=== PATIENT | female | born 2000 | race Caucasian/White ===

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

== ENCOUNTER 2020-02-06 14:38 | Emergency (ER) | payer OTHER ==
[2020-02-06 14:48] VITALS: BP 111/63; PULSE 82; TEMP 98.8; BMI 23.7
[2020-02-06] MEDS ORDERED: ACETAMINOPHEN 500 MG TABLET (FP) PO ONE (15:28)
--- NOTE | 2020-02-06 15:36 | PDOC ---
History of Present Illness - General Chief Complaint: Pain Stated Complaint: 12 WEEKS W[place]/ABD PAIN Time Seen by Provider: 02/06/20 15:02 History Source: Patient Exam Limitations: No Limitations - History of Present Illness Travel History: No Initial Comments: 02/06/20 15:32 HISTORY OF PRESENT ILLNESS: 19-year-old G2, P1 with last menstrual period 11/12 p resents emergency department for evaluation of lower abdominal pain. Patient reports last night she felt a sharp sensation in her lower abdomen which she states worsens when she tries to stand. She reports when she stands there is an increase in intensity which lasts for a few minutes. Patient is unable to move or sleep when the pain is happening. Patient denies any nausea, vomiting, constipation, diarrhea, rectal bleeding, vaginal bleeding, vaginal discharge, dysuria, hematuria or urinary frequency. No recent travel or sick contacts. PAST MEDICAL HISTORY: Denies past medical history SURGICAL HISTORY: Denies ALLERGIES: No known drug allergies REVIEW OF SYSTEMS General/Constitutional: Denies fever or chills. Denies weakness, weight change. HEENT: Denies change in vision. Denies ear pain or discharge. Denies sore throat. Cardiovascular: Denies chest pain or shortness of breath. Respiratory: Denies cough, wheezing, or hemoptysis. Gastrointestinal: See HPI Genitourinary: Denies dysuria, frequency, or change in urination. Musculoskeletal: Denies joint or muscle swelling or pain. Denies neck or back pain. Skin and breasts: Denies rash or easy bruising. Neurologic: Denies headache, vertigo, loss of consciousness, or loss of sensation. Psychiatric: Denies depression or anxiety. Endocrine: Denies increased thirst. Denies abnormal weight change. Hematologic/Lymphatic: Denies anemia, easy bleeding, or history of blood clots. Allergic/Immunologic: Denies hives or skin allergy. Denies latex allergy. PHYSICAL EXAM General Appearance: Well-appearing, appropriately dressed. No apparent distress, no intoxication. Gastrointestinal/Abdominal: Normal bowel sounds. Gravid abdomen soft. No tenderness or rebound tenderness. No organomegaly, pulsatile mass, guarding, hernia, hepatomegaly, splenomegaly. Musculoskeletal/Extremities: Normal inspection. FROM of all extremities, normal capillary refill. Pelvis Stable. No CVA tenderness. No tenderness to extremities, pedal edema, swelling, erythema or deformity. Past History - Medical History Allergies/Adverse Reactions: Allergies Allergy/AdvReac Type Severity Reaction Status Date / Time No Known Allergies Allergy Verified 02/06/20 14:47 Home Medications: Ambulatory Orders Queftycw26/Iron/Folic Acid/Dha [Prena1 Samanta Softgel] 1 each PO DAILY 02/01/20 Doxylamine Succinate/Vit B6 [Wandy Lainez 10-10 mg Tablet] 1 each PO BID #14 tablet. 02/06/20 Ondansetron [Zofran *Odt*] 4 mg SL BID PRN 02/06/20 COPD: No - Reproductive History Is Patient Now?: Yes (#): 2 Para: 0 Therapeutic (s) & number: No - Immunization History Immunization Up to Date: Yes - Psycho-Social/Smoking History Smoking History: Never smoked *Physical Exam - Vital Signs Last Vital Signs Temp Pulse Resp BP Pulse Ox 98.8 F 82 18 111/63 98 02/06/20 14:41 02/06/20 14:41 02/06/20 14:41 02/06/20 14:41 02/06/20 14:41 ED Treatment Course - LABORATORY CBC & Chemistry Diagram: 02/06/20 16:00 02/06/20 16:00 - RADIOLOGY Radiology Studies Ordered: Category Date Time Status <14WKS US [US] Stat Ultrasound 02/06/20 15:28 Ordered Medical Decision Making - Medical Decision Making 02/06/20 15:34 A/P: 19-year-old girl with suprapubic sharpness for 1 day Physical exam is unremarkable As patient is currently we will get an ultrasound to evaluate development. CBC, BMP, urinalysis, urine culture Tylenol 975 mg orally now Reassess 02/06/20 18:04 Laboratory Tests 02/06/20 02/06/20 02/06/20 16:00 16:00 16:00 WBC 8.8 RBC 4.32 Hgb 13.6 Hct 40.4 MCV 93.5 MCH 31.5 MCHC 33.6 RDW 13.0 Plt Count 213 MPV 9.1 Absolute Neuts (auto) 6.1 Neutrophils % 69.5 Lymphocytes % 24.3 Monocytes % 5.6 Eosinophils % 0.4 Basophils % 0.2 Nucleated RBC % 0 Sodium 151 H Potassium 4.5 Chloride 115 H Carbon Dioxide 24 Anion Gap 11 BUN 7.6 Creatinine 0.6 Est GFR (CKD-EPI)AfAm 153.15 Est GFR (CKD-EPI)NonAf 132.14 Random Glucose 60 L Calcium 9.0 Urine Color Yellow Urine Appearance Turbid Urine pH 7.0 Ur Specific [place] 1.023 Urine Protein Negative Urine Glucose (UA) Negative Urine Ketones Trace H Urine Blood Negative Urine Nitrite Negative Urine Bilirubin Negative Urine Urobilinogen 0.2 Ur Leukocyte Esterase Negative Ultrasound is read by Dr. Watson: Single live intrauterine with estimated sonographic gestational age of 12 weeks. heart rate is 144 bpm. Patient reports her pain is slightly improved after receiving Tylenol. Will discharge the patient home to follow-up with her STRUCTURAL STEEL IRONWORKER for continued evaluation. I discussed the physical exam findings, ancillary test results and final diagnoses with the patient. I answered all of the patient's questions. The patient was satisfied with the care received and felt comfortable with the discharge plan and treatment plan. The patient will call their primary care physician within 24 hours to arrange follow-up and will return to the Emergency Department with any new, persistent or worsening symptoms. Portions of this note have been documented using voice recognition software. As a result, errors may occur in the mail processor process. Effort has been made to correct all grammatical and mail processor error, but some may have been missed which may produce sporadic inaccurate mail processor or nonsensical phrases. Discharge - Discharge Information Problems reviewed: Yes Clinical Impression/Diagnosis: Abdominal pain during Qualifiers: Trimester: first trimester Qualified Code(s): O26.891 - Other specified related conditions, first trimester; R10.9 - Unspecified abdominal pain Condition: Fair Disposition: HOME - Additional Discharge Information Prescriptions: Doxylamine Succinate/Vit B6 [Diclegis Dr 10-10 mg Tablet] 1 each PO BID #14 tablet.dr - Follow up/Referral - Patient Discharge Instructions Additional Instructions: Take Tylenol as needed for pain. Take diclegis as needed for nausea and/or vomiting. It is important to follow-up with your STRUCTURAL STEEL IRONWORKER for continued evaluation of your pain. Return to the emergency department for any new or worsening symptoms. Thank you very much for choosing us to provide your emergent healthcare needs. - Post Discharge Activity
[2020-02-06] MEDS ORDERED: ACETAMINOPHEN 325 MG TABLET (FP) ONE (16:07)
[2020-02-06 16:19] LABS: BASO % 0.2 % (0-2.0); EOS % 0.4 % (0-4.5); HEMATOCRIT 40.4 % (32.4-45.2); HEMOGLOBIN 13.6 GM/dL (10.7-15.3); LYMPH % 24.3 % (8-40); MCH 31.5 pg (25.7-33.7); MCHC 33.6 g/dl (32.0-36.0); MEAN CELL VOLUME 93.5 fl (80-96); MEAN PLT VOLUME 9.1 fl (7.5-11.1); MONO % 5.6 % (3.8-10.2); NEUT % 69.5 % (42.8-82.8); PLATELET COUNT 213 K/MM3 (134-434); RBC 4.32 M/mm3 (3.60-5.2); WHITE BLOOD COUNT 8.8 K/mm3 (4.0-10.0)
[2020-02-06 16:25] LABS: URINE APPEARANCE TURBID; URINE BILIRUBIN NEGATIVE (NEGATIVE); URINE COLOR YELLOW; URINE GLUCOSE (UA) NEGATIVE (NEGATIVE); URINE KETONE TRACE (NEGATIVE); URINE LEUK ESTERASE NEGATIVE (NEGATIVE); URINE NITRITE NEGATIVE (NEGATIVE); URINE PROTEIN NEGATIVE (NEGATIVE); URINE UROBILINOGEN 0.2 mg/dL (0.2-1.0)
[2020-02-06 17:00] LABS: BLOOD UREA NITROGEN 7.6 mg/dL (7-18); CREATININE 0.6 mg/dL (0.55-1.3); POTASSIUM 4.5 mmol/L (3.5-5.1)
== END 2020-02-06 19:16 | disposition home or self-care (01) ==
LOC: JER 14:38
DX: O26.891 Other specified pregnancy related conditions, first trimester (principal); Z3A.12 12 weeks gestation of pregnancy
CPT/HCPCS: 36415; 76801-TC; 80048; 81003; 85025; 87077; 87086; 99284-25

== ENCOUNTER 2020-03-07 19:20 | Emergency (ER) | payer OTHER ==
[2020-03-07 19:29] VITALS: BP 113/65; PULSE 78; TEMP 98.1; BMI 24.0
--- NOTE | 2020-03-07 20:38 | PDOC ---
History of Present Illness - General Chief Complaint: Pain, Acute Stated Complaint: 16 WKS PREG W/ CLEAR DISCHARGE Time Seen by Provider: 03/07/20 20:02 History Source: Patient Exam Limitations: No Limitations - History of Present Illness Initial Comments: 19-year-old female currently 16 weeks presenting to the ED complaining of abdominal cramping and watery vaginal discharge since today. Patient's ORE DRESSING ENGINEER is Dr. Nichols. Patient denies any vaginal bleeding. Pt otherwise denies: fevers, chills, syncope, lightheadedness, dizziness, headaches, neck pain, chest pain, shortness of breath, palpitations, back pain, nausea, vomiting, diarrhea, constipation. Past History - Medical History Allergies/Adverse Reactions: Allergies Allergy/AdvReac Type Severity Reaction Status Date / Time No Known Allergies Allergy Verified 02/06/20 14:47 Home Medications: Ambulatory Orders Iueortaz25/Iron/Folic Acid/Dha [Prena1 Samanta Softgel] 1 each PO DAILY 02/01/20 Doxylamine Succinate/Vit B6 [Wandy Lainez 10-10 mg Tablet] 1 each PO BID #14 tablet. 02/06/20 Ondansetron [Zofran *Odt*] 4 mg SL BID PRN 02/06/20 Cephalexin Monohydrate [Keflex -] 500 mg PO BID #20 capsule 02/09/20 Cephalexin [Keflex] 500 mg PO BID #10 capsule 03/07/20 COPD: No - Reproductive History Is Patient Now?: Yes (#): 2 Para: 0 Therapeutic (s) & number: No Spontaneous : 0 - Immunization History Immunization Up to Date: Yes - Psycho-Social/Smoking History Smoking History: Never smoked - Substance Abuse Hx (Audit-C & DAST Scrn) How often the patient has a drink containing alcohol: Never Score: In Men: 4 or > Positive; In Women: 3 or > Positive: 0 Screen Result (Pos requires Nsg. Audit-10AR): Negative In the last yr the pt used illegal drug/Rx for NonMed reason: No Score: Yes response is considered Positive: 0 Screen Result (Positive result requires Nsg. DAST-10): Negative *Physical Exam - Vital Signs Last Vital Signs Temp Pulse Resp BP Pulse Ox 98.1 F 78 19 113/65 100 03/07/20 19:27 03/07/20 19:27 03/07/20 19:27 03/07/20 19:27 03/07/20 19:27 - Physical Exam 03/07/20 20:38 Gen: AAOx 3, no acute distress, comfortable, no signs of respiratory distress HENT: atraumatic, normocephalic with no laceration or contusion. Nasal mucosa without erythema. Oropharynx without erythema or exudates. Mucous membranes moist. EYES: PERRL, EOM intact, conjunctiva pink NECK: supple; trachea midline; no JVD, no lymphadenopathy, or thyromegaly CV: RRR no murmurs, gallops, or rubs. CHEST: CTA b/l no wheezing, rales or rhonchi ABD: +BS/ND. no TTP; soft, no rebound, no guarding PELVIC: No external lesions, vaginal vault: + white discharge, no blood, - midline tenderness elicited with manual exam, no CMT or adnexal tenderness; os closed EXTREMITY: no cyanosis or erythema. 2+ dorsalis pedis, posterior tibial, and radial pulse. No pedal edema; no calf swelling or tenderness SKIN: no rash, warm and dry, no diaphoresis HEME: no purpura or ecchymosis NEURO: normal speech, CN II-XII intact, sensation intact, normal gait, no cerebellar deficits MS: 5/5 strength in all extremities, FROM intact in all extremities. ED Treatment Course - LABORATORY CBC & Chemistry Diagram: 03/07/20 20:15 03/07/20 20:00 - RADIOLOGY Radiology Studies Ordered: Category Date Time Status US(SINGLE) [US] Stat Ultrasound 03/07/20 20:07 Ordered Medical Decision Making - Medical Decision Making 03/07/20 20:38 19-year-old female with lower abdominal cramping and discharge Vital signs stable Will obtain labs UA UC GC and transvaginal ultrasound Will reassess based on results White blood cell count 8.8 H&H stable at 13.1/30.8 Chemistry within normal limits Beta 32,477 Rh+ Urine significant for UTI Will discharge on Keflex twice daily for 5 days TVUS shows live intrauterine 16 weeks 5 days with a heart rate of 148 rest of exam within normal limits Will treat for gonorrhea chlamydia prophylactically as there was vaginal discharge and the risks outweigh the benefits of waiting for results. Patient counseled and understands this and knows that she will receive a call if the results are positive. Patient to follow-up with BATTERY INSTALLER without fail Pt appears well and is safe and stable for discharge with strict return precautions including signs and symptoms requring immediate return to the ED Supportive care instructions explained and given to pt. Reasons to return emergently to ER explained and given. Importance of follow up with PMD and other specialists as indicated stressed to pt. Pt verbalized understanding of instructions. Pt to follow up with PMD in 2 days. Discharge - Discharge Information Problems reviewed: Yes Clinical Impression/Diagnosis: UTI (urinary tract infection) Qualifiers: Urinary tract infection type: acute cystitis Hematuria presence: without hematuria Qualified Code(s): N30.00 - Acute cystitis without hematuria Condition: Stable Disposition: HOME - Additional Discharge Information Prescriptions: Cephalexin [Keflex] 500 mg PO BID #10 capsule - Follow up/Referral - Patient Discharge Instructions Patient Printed Discharge Instructions: DI for Urinary Tract Infection (UTI) Additional Instructions: PLEASE FOLLOW UP WITH YOUR BATTERY INSTALLER - Post Discharge Activity
[2020-03-07 21:33] LABS: BASO % 0.5 % (0-2.0); EOS % 0.6 % (0-4.5); HEMATOCRIT 38.8 % (32.4-45.2); HEMOGLOBIN 13.1 GM/dL (10.7-15.3); LYMPH % 28.9 % (8-40); MCHC 33.7 g/dl (32.0-36.0); MEAN PLT VOLUME 9.2 fl (7.5-11.1); MONO % 6.5 % (3.8-10.2); NEUT % 63.5 % (42.8-82.8); PLATELET COUNT 232 K/MM3 (134-434); RBC 4.21 M/mm3 (3.60-5.2); RDW 12.6 % (11.6-15.6); WHITE BLOOD COUNT 8.8 K/mm3 (4.0-10.0)
[2020-03-07 21:35] LABS: INR 0.92 (0.83-1.09)
[2020-03-07 21:44] LABS: EPI CELLS >36 /uL (0-25.1); HYALINE CASTS 2 /uL (0-3.1); URINE APPEARANCE CLEAR; URINE BACTERIA 245 /uL (0-1359); URINE BILIRUBIN NEGATIVE (NEGATIVE); URINE COLOR YELLOW; URINE GLUCOSE (UA) NEGATIVE (NEGATIVE); URINE KETONE NEGATIVE (NEGATIVE); URINE LEUK ESTERASE TRACE (NEGATIVE); URINE NITRITE NEGATIVE (NEGATIVE); URINE PROTEIN NEGATIVE (NEGATIVE); URINE RBC 3 /uL (0-23.9); URINE UROBILINOGEN 0.2 mg/dL (0.2-1.0); URINE WBC 9 /uL (0-25.8)
[2020-03-07 22:09] LABS: ALBUMIN 3.4 g/dl (3.4-5.0); BILIRUBIN,TOTAL 0.9 mg/dL (0.2-1); CALCIUM 8.9 mg/dL (8.5-10.1); CREATININE 0.5 mg/dL (0.55-1.3); POTASSIUM 4.1 mmol/L (3.5-5.1); TOT PROT 6.8 g/dl (6.4-8.2)
[2020-03-07 22:21] LABS: PROTHROMBIN TIME (PATIENT) 10.8 SEC (9.7-13.0)
[2020-03-07 22:24] LABS: ACTIVATED PTT 27.7 SECONDS (25.2-36.5)
[2020-03-07] MEDS ORDERED: AZITHROMYCIN 500 MG TABLET PO ONE (22:48)
[2020-03-07] MEDS ORDERED: AZITHROMYCIN 250 MG TABLET ONE (22:56)
[2020-03-07] MEDS ORDERED: CEFTRIAXONE 1 GM/50 ML BAG ONE (22:57)
== END 2020-03-07 23:25 | disposition home or self-care (01) ==
LOC: JER 19:20
DX: N30.00 Acute cystitis without hematuria (principal)
CPT/HCPCS: 36415; 76801-TC; 80053; 81003; 84702; 85025; 85610; 85730; 86850; 86900; 86901; 87086; 87491; 87591; 99285-25

== ENCOUNTER 2020-03-09 19:16 | Emergency (ER) | payer OTHER ==
[2020-03-09 19:29] VITALS: BP 104/59; PULSE 75; TEMP 98.6; BMI 24.0
[2020-03-09] MEDS ORDERED: FAMOTIDINE 20 MG/50 ML IVPB 20 MG/50 ML MG IVPB ONE ×2 (20:02→20:32)
[2020-03-09] MEDS ORDERED: ONDANSETRON 4 MG/2 ML VIAL IVPUSH ONE (20:02)
--- NOTE | 2020-03-09 20:08 | PDOC ---
History of Present Illness - General Chief Complaint: Vomiting/Diarrhea Stated Complaint: 16 WKS/VOMITING/DIARRHEA Time Seen by Provider: 03/09/20 19:51 History Source: Patient Exam Limitations: No Limitations - History of Present Illness Initial Comments: 03/09/20 20:03 19-year-old female currently 16 weeks presenting to the ED complaining of nausea vomiting and diarrhea. pt states her symptoms began yesterday afternoon and she has not been able to tolerate PO since. Pt was here 2 days ago seen and examined by myself with negative workup aside from UTI and started on keflex. Pt has been compliant with meds. Pt states last meal was 5pm followed by olivia GUERRERO. Pt otherwise denies: fevers, chills, syncope, lightheadedness, dizziness, headaches, neck pain, chest pain, shortness of breath, palpitations, back pain, constipation. Past History - Medical History Allergies/Adverse Reactions: Allergies Allergy/AdvReac Type Severity Reaction Status Date / Time No Known Allergies Allergy Verified 03/09/20 19:29 Home Medications: Ambulatory Orders Qtwzohag53/Iron/Folic Acid/Dha [Prena1 Samanta Softgel] 1 each PO DAILY 02/01/20 Doxylamine Succinate/Vit B6 [Wandy Lainez 10-10 mg Tablet] 1 each PO BID #14 tablet. 02/06/20 Ondansetron [Zofran *Odt*] 4 mg SL BID PRN 02/06/20 Cephalexin Monohydrate [Keflex -] 500 mg PO BID #20 capsule 02/09/20 Cephalexin [Keflex] 500 mg PO BID #10 capsule 03/07/20 Doxylamine Succinate/Vit B6 [Wandy Lainez 10-10 mg Tablet] 2 each PO HS 7 Days #14 tablet. 03/09/20 Famotidine [Pepcid] 40 mg PO DAILY #14 tablet 03/09/20 COPD: No - Reproductive History Is Patient Now?: Yes (#): 2 Para: 0 Cervical CA: No Dysfunctional Uterine Bleeding: No Ectopic : No Endometrial CA: No Polycystic Ovaries: No Therapeutic (s) & number: No Tubal Ligation: No Spontaneous : 0 - Immunization History Immunization Up to Date: Yes - Psycho-Social/Smoking History Smoking History: Never smoked - Substance Abuse Hx (Audit-C & DAST Scrn) How often the patient has a drink containing alcohol: Never Score: In Men: 4 or > Positive; In Women: 3 or > Positive: 0 Screen Result (Pos requires Nsg. Audit-10AR): Negative *Physical Exam - Vital Signs Last Vital Signs Temp Pulse Resp BP Pulse Ox 98.6 F 75 18 104/59 L 99 03/09/20 19:26 03/09/20 19:26 03/09/20 19:26 03/09/20 19:26 03/09/20 19:26 - Physical Exam 03/09/20 20:06 Gen: AAOx 3, no acute distress, comfortable, no signs of respiratory distress HENT: atraumatic, normocephalic with no laceration or contusion. Nasal mucosa without erythema. Oropharynx without erythema or exudates. Mucous membranes moist. EYES: PERRL, EOM intact, conjunctiva pink NECK: supple; trachea midline; no JVD, no lymphadenopathy, or thyromegaly CV: RRR no murmurs, gallops, or rubs. CHEST: CTA b/l no wheezing, rales or rhonchi ABD: +BS/ND. no TTP; soft, no rebound, no guarding fundus slightly below umbillicus EXTREMITY: no cyanosis or erythema. 2+ dorsalis pedis, posterior tibial, and radial pulse. No pedal edema; no calf swelling or tenderness SKIN: no rash, warm and dry, no diaphoresis HEME: no purpura or ecchymosis NEURO: normal speech, CN II-XII intact, sensation intact, normal gait, no cerebellar deficits MS: 5/5 strength in all extremities, FROM intact in all extremities. ED Treatment Course - LABORATORY CBC & Chemistry Diagram: 03/09/20 20:30 03/09/20 20:30 Medical Decision Making - Medical Decision Making 03/09/20 20:06 19-year-old female 16 weeks gestation with nausea vomiting diarrhea Vital signs stable Obtain labs administer normal saline Zofran and Pepcid Will reassess based on results Labs show a white blood cell count of 10.1 (most likely reactive) Chemistry within normal limits Lipase within normal limits UA: shows no UTI culture from 2 days ago pending since pt had UTI on previous UA 2 days ago will have pt complete 4 more days of Keflex rather than the full course of 10 days prescribed. Patient is currently tolerating p.o. food and fluids in the ED after Zofran and Pepcid patient received 1 L normal saline and states she feels much better Will discharge home with Aminta Patient to follow-up with PCP and [facility] Pt appears well and is safe and stable for discharge with strict return precautions including signs and symptoms requring immediate return to the ED Supportive care instructions explained and given to pt. Reasons to return emergently to ER explained and given. Importance of follow up with PMD and other specialists as indicated stressed to pt. Pt verbalized understanding of instructions. Pt to follow up with PMD in 2 days. Discharge - Discharge Information Problems reviewed: Yes Clinical Impression/Diagnosis: Acute vomiting UTI (urinary tract infection) Qualifiers: Urinary tract infection type: acute cystitis Hematuria presence: without hematuria Qualified Code(s): N30.00 - Acute cystitis without hematuria Condition: Stable Disposition: HOME - Additional Discharge Information Prescriptions: Doxylamine Succinate/Vit B6 [Wandy Lainez 10-10 mg Tablet] 2 each PO HS 7 Days #14 tablet. Famotidine [Pepcid] 40 mg PO DAILY #14 tablet - Follow up/Referral - Patient Discharge Instructions Patient Printed Discharge Instructions: DI for Hyperemesis Gravidarum, DI for Vomiting -- Adult Additional Instructions: PLEASE FOLLOW UP WITH [facility] - Post Discharge Activity
[2020-03-09] MEDS ORDERED: ONDANSETRON 4 MG/2 ML VIAL ONE (20:39)
[2020-03-09 20:59] LABS: BASO % 0.2 % (0-2.0); EOS % 0.1 % (0-4.5); HEMATOCRIT 37.2 % (32.4-45.2); HEMOGLOBIN 12.8 GM/dL (10.7-15.3); MCH 31.6 pg (25.7-33.7); MCHC 34.4 g/dl (32.0-36.0); MEAN CELL VOLUME 91.8 fl (80-96); MEAN PLT VOLUME 9.2 fl (7.5-11.1); MONO % 3.4 % (3.8-10.2); NEUT % 80.3 % (42.8-82.8); PLATELET COUNT 210 K/MM3 (134-434); RBC 4.05 M/mm3 (3.60-5.2); RDW 12.8 % (11.6-15.6); WHITE BLOOD COUNT 10.1 K/mm3 (4.0-10.0)
[2020-03-09 21:33] LABS: ALBUMIN 3.3 g/dl (3.4-5.0); BILIRUBIN,TOTAL 0.9 mg/dL (0.2-1); BLOOD UREA NITROGEN 6.4 mg/dL (7-18); CALCIUM 8.8 mg/dL (8.5-10.1); CREATININE 0.5 mg/dL (0.55-1.3); POTASSIUM 4.4 mmol/L (3.5-5.1); TOT PROT 6.6 g/dl (6.4-8.2)
[2020-03-09 22:56] LABS: URINE APPEARANCE CLEAR; URINE BILIRUBIN NEGATIVE (NEGATIVE); URINE COLOR YELLOW; URINE GLUCOSE (UA) NEGATIVE (NEGATIVE); URINE KETONE 4+ (NEGATIVE); URINE LEUK ESTERASE NEGATIVE (NEGATIVE); URINE NITRITE NEGATIVE (NEGATIVE); URINE PROTEIN TRACE (NEGATIVE)
== END 2020-03-09 23:22 | disposition home or self-care (01) ==
LOC: JER 19:16
PROC: 3E033GC Introduction of Other Therapeutic Substance into Peripheral Vein, Percutaneous Approach (ICD-10-PCS; principal; 2020-03-09)
DX: R11.10 Vomiting, unspecified (principal); N30.00 Acute cystitis without hematuria; Z3A.16 16 weeks gestation of pregnancy
CPT/HCPCS: 36415; 80053; 81003; 83690; 85025; 99284-25

== ENCOUNTER 2020-03-23 16:19 | Emergency (ER) | payer OTHER ==
[2020-03-23 16:26] VITALS: BP 108/61; PULSE 82; TEMP 97.8; BMI 24.5
--- OUTSIDE RECORDS SUMMARY | 2020-03-23 16:40 | XMS ---
:2000 [address] Organization [facility] Care Team Providers Name Role Phone Gloria Hanson MD Unavailable Unavailable Beverly Hanson MD Unavailable Unavailable Beverly Hanson MD Unavailable Unavailable Beverly Hanson MD Unavailable Unavailable Beverly Hanson MD Unavailable Unavailable Beverly Hanson MD Unavailable Unavailable Abner Unavailable Unavailable Beverly Hanson MD Unavailable Unavailable Beverly Hanson MD Unavailable Unavailable Beverly Hanson MD Unavailable Unavailable Beverly Hanson MD Unavailable Unavailable Beverly Hanson MD Unavailable Unavailable Beverly Hanson MD Unavailable Unavailable Re-disclosure Warning The records that you are about to access may contain information from federally- assisted alcohol or drug abuse programs. If such information is present, then the following federally mandated warning applies: This information has been disclosed to you from records protected by federal confidentiality rules (42 CFR part 2). The federal rules prohibit you from making any further disclosure of this information unless further disclosure is expressly permitted by the written consent of the person to whom it pertains or as otherwise permitted by 42 CFR part 2. A general authorization for the release of medical or other information is NOT sufficient for this purpose. The Federal rules restrict any use of the information to criminally investigate or prosecute any alcohol or drug abuse patient.The records that you are about to access may contain highly sensitive health information, the redisclosure of which is protected by Article 27-F of the [facility] Public Health law. If you continue you may haveaccess to information: Regarding HIV / AIDS; Provided by facilities licensed or operated by the [facility] Office of Mental Health; or Provided by the [facility] Office for People With Developmental Disabilities. If such information is present, then the following [facility] mandated warning applies: This information has been disclosed to you from confidential records which are protected by state law. State law prohibits you from making any further disclosure of this information without the specific written consent of the person to whom it pertains, or as otherwise permitted by law. Any unauthorized further disclosure in violation of state law may result in a fine or senior living sentence or both. A general authorization for the release of medical or other information is NOT sufficient authorization for further disclosure. Encounters Encounter Providers Location Date Indications Data Source(s ) Outpatient Attender: Gloria VILLATOROCLJORDYV 03/15/2020 KENNEDI Hanson MD 03:15:03 PM Hospital EDT Outpatient Attender: Gloria CASTILLO 02/16/2020 KENNEDI Hanson MD 11:37:51 AM Hospital EDT - 02/19/2020 11:59:00 PM EDT Patient discharged. Outpatient Attender: Gloria ALSTON-ANTE PAR 02/14/2020 02:06:00 KENNEDI Hanson MD PM EDT - 02/14/2020 [facility] 11:59:00 PM EDT Admission cancelled. Disregard status an d admitted date. Outpatient Attender: Gloria CASTILLO 01/19/2020 01:20:18 KENNEDI Hanson MD PM EDT - 01/22/2020 [facility] 11:59:00 PM EDT Patient discharged. Outpatient Attender: Berta CASTILLO 01/10/2020 11:44:00 AM KENNEDI Levine EDT - 01/10/2020 Hospital 11:59:00 PM EDT Patient discharged. Outpatient Attender: Gloria BenzRADCLJORDYV 01/04/2020 03:43:36 KENNEDI Hanson MD PM EDT - 01/08/2020 [facility] 11:59:00 PM EDT Patient discharged. Medications Medication Brand Start Product Dose Route Administrative Pharmacy [facility] Indications Reaction Description Data Name Date Form Instructions Instructions Source(s) doxylamine doxyla [id number] active Sleep Aid [facility] succinate mine 2019 {tab( (Doxylamine) H ealth 25 MG Oral 25 mg 01:39: s)} System Tablet oral 21 PM doxylamine tablet EDT 25 mg oral tablet May cause drowsiness. Alcohol may inten sify this effect. Use care when operating dangerous machinery.Obtain medical advic e before taking any non-prescription drugs as some may affect the action of this medic ation. Vitamin B6 25 MG Vitamin 02/19/2020 1 Q07775 active Vitamin [facility] Oral Tablet B6 25 mg 01:38:58 PM {tab(s)} B6 Health Vitamin B6 25 mg oral EDT Sys tem oral tablet tablet Metoclopramide 5 Reglan 5 01/08/2020 1 C56164 active Reglan [facility] MG Oral Tablet mg oral 10:50:47 AM {tab(s)} Health [Reglan] Reglan tablet EDT Sy stem 5 mg oral tablet May cause drowsiness or dizziness.Take m edication on an empty stomach 1 hour before or 2 to 3 hours after a meal unless othe rwise directed by your doctor. Insurance Providers Payer name Policy type / Policy ID Covered Covered constitution party's Policy Plan Coverage type constitution party ID relationship to Pugh Information pugh [employer]INITY [id number] SP [id number] [employer] Medicaid [id number] 1 [id number] Health Plan [employer] Medicaid [id number] 1 [id number] Health Plan Healthfirst Commercial [id number] 1 [id number] M Medicaid [place] [id number] SP [id number] [facility] [id number] SP [id number] M Healthfirst Commercial [id number] 1 [id number] M Medicaid Problems, Conditions, and Diagnoses Code Display Name Description Problem Type Effective Dates Data Source(s) Z33.1 state, Incidental Diagnosis 02/19/2020 [facility] incidental adolescent 01:10:00 PM EDT [facility] F32.9 Major depressive Depression, Diagnosis 01/10/2020 [facility] - M ount disorder, single controlled 12:00:00 AM EDT [facility] episode, unspecified Z34.91 Encounter for Encounter for Diagnosis 01/08/2020 [facility] - Mo unt supervision of supervision of 10:09:[address] [facility] normal , normal unspecified, first in first trimester trimester Z3A.08 8 weeks gestation 8 weeks gestation Diagnosis 01/08/2020 [facility] [place] [facility] 10:09:00 AM EDT [facility] Surgeries/Procedures Procedure Description Date Indications Data Source(s) OB 1st Trimester 01/11/2020 [facility] (less than 14 weeks) US 09:06:00 AM EDT S ystem OB 1st Trimester (less - 01/11/2020 than 14 weeks) 09:06:00 AM EDT Venipuncture 01/08/2020 [facility] 11:09:04 AM EDT System - 01/08/2020 01:00:22 PM EDT Aerobic Culture, Urine 01/08/2020 [facility] 10:51:00 AM EDT System - 01/08/2020 10:51:00 AM EDT Results ID Date Data Source [id number] 02/25/2020 02:04:14 AM EDT [facility] System Name Value Range Interpretation Description Data Sup porting Code Source(s) Document(s ) (Always SEE NOTES The Normal (applies (Always [facility] Message analytical to non-numeric Message) Health ) performance results) System characteristics of thisassay, when used to test SurePath(TM) specimens have beendetermined by [employer]. The modifications havenot been cleared or approved by the FDA. This assay hasbeen validated pursuant to the CLIA regulations and isused for clinical purposes.For additional information, please refer [email or web address] [email or web address]_ .com/faq/GXK680(Th is link is being provided for information/educat ional purposes only.)THIS TEST WAS PERFORMED AT:[facility] [id number] QUINTEN,[facility]orted Date and Time - 01/11/2020 02:05 N.Gonor NOT DETECTED Normal (applies N. Gonorrhea [facility] rheabyL Reference Range: to non-numeric by [facility] CR NOT DETECTED results) System C.Trach NOT DETECTED Normal (applies C. [facility] omatisA Reference Range: to non-numeric [facility] mp NOT DETECTED results) Amp System ID Date Data Source [id number] 02/25/2020 02:04:14 AM EDT [facility] Name Value Range Interpretation Description Data Sup porting Code Source(s) Document(s ) Reagin Ab Non-reactive Normal (applies RPR. [facility] [Presence Test to non-numeric Health ] in Methodology: results) System Serum by Nontreponemal RPR flocculation card test. ID Date Data Source [id number] 02/25/2020 02:04:14 AM EDT [facility] Name Value Range Interpretation Code Description Data Aleisha rce(s) Supporting Document(s ) tHbWB 3654.45 Normal (applies to tHbWB [facility] non-numeric results) Health Sy stem JkT1CCa 91.15 Normal (applies to ZrH6SGu [facility] non-numeric results) Health Sy stem %HbA1C 4.43 % Normal (applies to %HbA1C [facility] non-numeric results) Health Sy stem ID Date Data Source [id number] 02/25/2020 02:04:14 AM EDT [facility] Name Value Range Interpretation Code Description Data Aleisha rce(s) Supporting Document(s ) Lead.. < 1 Normal (applies to Lead.. [facility] non-numeric results) Health Sy stem See Note 1Note 1This test was developed and its analytical performance characteristics have been determined by [employer]. It has not been cleared or approved by theFDA. This assay has been validated pursuant to the CLIA regulations and is used for clinical purposes.THIS T EST WAS PERFORMED AT:[facility] [id number] TSAO,MDReported Date and Time - 01/09/20 17:29 Lead.. < 1 Normal (applies to non-numeric Lead.. [facility] results) See Note 1Note 1This test was developed and its analytical performance characteristics have been determined by [employer]. It has not been cleared or approved by theA. This assay has been validated pursuant to the CLIA regulations and is used for clinical purposes.THIS T EST WAS PERFORMED AT:[facility] [id number] TSAO,[facility]orted Date and Time - 01/13/20 20 16:33 ID Date Data Source [id number] 02/25/2020 02:04:14 AM EDT [facility] Name Value Range Interpretation Description Data Sup porting Code Source(s) Document(s ) VaricellaResul > 4000.00 Index Normal (applies Varicella [facility] tValue to non-numeric Result Value Health Interpretation- results) System -------- --------<135.00 Negative - Antibody not aplewxge891.00 - 164.99 Equivocal> or = 165.00 Positive - Antibody detectedA positive result indicates that the patienthas antibody to VZV but does not differentiatebe tween an active or past infection. The clinical diagnosis must be interpreted in conjunction with the clinical signs and symptoms of the patient. This assay reliably measures immunitydue to previous infection but may not be sensitive enough to detect antibodies induced byvaccination. Thus, a negative result in a vaccinatedindiv idual does not necessarily indicatesuscept ibility to VZV infection. A more sensitivetest for vaccination-ind uced immunity is VaricellaZoster Virus Antibody Immunity Screen, ACIF.THIS TEST WAS PERFORMED AT:[facility] [address]QJ[facility] QUINTEN,MDReported Date and Time - 01/13/2020 16:33 ID Date Data Source [id number] 02/25/2020 02:04:14 AM EDT [facility] System Name Value Range Interpretation Description Data Source(s ) Supporting Code Document(s ) RubellaA 2.95 Normal (applies to Rubella [facility] ntibody. {index} non-numeric Antibody. Health System results) Index Interpretation----- <0.90 Not consistent with Immunity0.90-0.99 Equivocal> or = 1.00 Consistent with Immunity The presence of rubella IgG ant ibody suggests immunization or past or current infection withrubella virus.THIS TEST WAS PERFORMED AT:[facility] [address]LSLKIYAK QUINTEN,MDReported Date and Time - 01/13/20 16:33 ID Date Data Source [id number] 02/25/2020 02:04:14 AM EDT [facility] [employer] System Name Value Range Interpretation Description Data Sup porting Code Source(s) Document(s ) Human NONREACTIVE Normal (applies HIV test, [facility] immunodeficien Normal Range: to non-numeric Routine Health cy virus Non results) (antigen and System antibody titer ReactiveNegativ antibody measurement e for HIV-1 testing) (procedure) antigen and HIV-1/HIV-2 antibodies. No laboratory evidence of HIV infection.Test was performed at [address] ID Date Data Source [id number] 02/25/2020 02:04:14 AM EDT [facility] alth System Name Value Range Interpretation Description Data Sup porting Code Source(s) Document(s ) Type B Normal (applies Type [facility] to non-numeric Health results) System AntibodyScreen Negative Normal (applies Antibody [facility] to non-numeric Screen Health results) System D Ab [Titer] in Positive Normal (applies Rh [facility] Serum or Plasma to non-numeric Health results) System ID Date Data Source [id number] 02/25/2020 02:04:14 AM EDT [facility] alth System Name Value Range Interpretation Description Data Sup porting Code Source(s) Document(s ) RBC. 4.15 Normal (applies to RBC. [facility] {Million/ non-numeric Health System uL} results) hemoglobin. 13.1 g/dL Normal (applies to hemoglobin. [facility] non-numeric [facility] System results) MCH. 31.6 pg Normal (applies to MCH. [facility] non-numeric Health System results) Hematocrit. 39.0 % Normal (applies to Hematocrit. [facility] non-numeric Health System results) MCV. 94.0 fL Normal (applies to MCV. [facility] non-numeric Health System results) HemoglobinA 97.1 % Normal (applies to Hemoglobin A [facility] non-numeric [facility] System results) RDW. 12.7 % Normal (applies to RDW. [facility] non-numeric Health System results) THIS TEST WAS PERFORMED AT:[employer] [address] [id number] TSAO,MDReported Date and Time - 01/09/2020 05:47 HemoglobinC DNR Normal Hemoglobin C [facility] (applies to Health non-numeric System results) HEMOGLOBINE DNR Normal HEMOGLOBIN E [facility] (applies to Health non-numeric System results) OTHERHEMOGLOBIN1 DNR Normal OTHER HEMOGLOBIN [facility] (applies to 1 Health non-numeric System results) HemoglobinS DNR Normal Hemoglobin S [facility] (applies to Health non-numeric System results) HemoglobinElectrophoresisInterpretation * Normal Hemoglobin [facility] (applies to Electrophoresis Health non-numeric Interpretation System results) Normal Pattern.THIS TEST WAS PERFORMED A T:[facility]-[address] [address]UUEDORDP QUINTEN, MDReported Date and Time - 01/13/2020 16:33 OTHERHEMOGLOBIN2 DNR Normal (applies to OTHER HEMOGLOB IN [facility] Health non-numeric 2 System results) HemoglobinA2 1.9 % Normal (applies to Hemoglobin A2 [facility] Health non-numeric System results) Hemoglobin F < 1.0 Normal (applies to Hemoglobin, [facility] [Mass/volume] in Blood non-numeric Syste m by Electrophoresis results) ID Date Data Source [id number] 02/25/2020 02:04:14 AM EDT [facility] Name Value Range Interpretation Description Data Sup porting Code Source(s) Document(s ) Leukocytes 6.7 Normal (applies WBC Count [facility] [#/volume] in {10^3_uL to non-numeric Health Unspecified } results) System specimen by Automated count Erythrocytes 4.14 Normal (applies RBC Count [facility] [#/volume] in {10^6_uL to non-numeric Health Blood by } results) System Automated count Hematocrit 38.0 % Normal (applies Hematocrit [facility] [Volume to non-numeric Health Fraction] of results) System Blood Hemoglobin 13.0 Normal (applies Hemoglobin [facility] [Mass/volume] in {gm/dL} to non-numeric Health Blood results) System Erythrocyte mean 31.4 pg Normal (applies MCH [facility] corpuscular to non-numeric Health hemoglobin results) System [Entitic mass] by Automated count Erythrocyte mean 34.2 Normal (applies MCHC [facility] corpuscular {gm/dL} to non-numeric Health hemoglobin results) System concentration [Mass/volume] by Automated count Erythrocyte mean 91.8 fl Normal (applies MCV [facility] corpuscular to non-numeric Health volume [Entitic results) System volume] by Automated count Platelets 211 Normal (applies Platelet Count [facility] [#/volume] in {10^3_uL to non-numeric Health Plasma by } results) System Automated count Erythrocyte 12.4 % Normal (applies RDW-CV [facility] distribution to non-numeric Health width [Entitic results) System volume] by Automated count Neutrophils 4.8 Normal (applies Neutrophil # [facility] [#/volume] in {10^3_uL to non-numeric Health Body fluid } results) System Eosinophils 0.04 Below low normal Eosinophil # [facility] [#/volume] in {10^3_uL Health Blood } System Platelet mean 11.0 fl Above high MPV [facility] volume [Entitic normal Health volume] in Blood System by Automated count Monocytes 0.4 Normal (applies Monocyte # [facility] [#/volume] in {10^3_uL to non-numeric Health Blood by Manual } results) System count Lymphocyte 1.5 Normal (applies Lymphocyte # [facility] percent {10^3_uL to non-numeric Health differential } results) System count (procedure) Neutrophils/100 71.4 % Normal (applies Neutrophil % [facility] leukocytes in to non-numeric Health Blood by results) System Automated count Basophils 0.02 Normal (applies Basophil # [facility] [#/volume] in {10^3_uL to non-numeric Health Blood by } results) System Automated count Monocytes/100 5.8 % Normal (applies Monocyte % [facility] leukocytes in to non-numeric Health Blood results) System Eosinophils/100 0.6 % Normal (applies Eosinophil % [facility] leukocytes in to non-numeric Health Unspecified results) System specimen Basophils/100 0.3 % Normal (applies Basophil % [facility] leukocytes in to non-numeric Health Unspecified results) System specimen by Manual count Lymphocytes 21.5 % Normal (applies Lymphocyte % [facility] [#/volume] in to non-numeric Health Blood by results) System Automated count ImmatureGranuloc 0.4 % Normal (applies Immature [facility] ytes% to non-numeric Granulocytes % Health results) System Nucleated 0.0 Normal (applies NRBC % [facility] erythrocytes {/100_WB to non-numeric Health [#/volume] in C} results) System Body fluid NRBC# 0.00 Below low normal NRBC # [facility] {10^3_uL Health } System ImmatureGranuloc 0.03 Normal (applies Immature [facility] ytes# {10^3_uL to non-numeric Granulocytes # Health } results) System ID Date Data Source [id number] 02/25/2020 02:04:14 AM EDRo [place] System Name Value Range Interpretation Code Description Data Aleisha rce(s) Supporting Document(s ) Method. SEE NOTE Normal (applies to Method. [facility] non-numeric Health System results) The mutations are detected by multiplex- polymerase chainreaction (PCR) amplification of specific CF gene regions,followed by nucleotide sequence analysis on a massivelyparallel sequencing platform. A lthough rare, false positiveor false negative results may occur. All results should be interpreted in the context of clinical findings, relevanthistory, and other lab oratory data. CFCarrierScreen NEGATIVE Normal (applies to CF Carrier [facility] Health non-numeric results) Screen System NEGATIVE; NONE OF THE MUTATIONS LISTED B ELOW WERE DETECTED Ethinicity NG Normal (applies to Ethinicity [facility] non-numeric results) System Interpretation SEE NOTE Normal (applies to Interpretation [facility] non-numeric results) System This result does not rule out the presen ce of a mutation ora diagnosis of cystic fibrosis disease (CF). The risk formutat ions that cause CF other than the ones tested dependsgreatly on family history, clinic al presentation, andethnicity.Chance of Having a CF MutationEthnic Group Detec tion Before After NegativeRate Test ResultAshkenazi Muslim 94% 1 in 24 1 in 400Non- 88% 1 in 25 1 in 208CaucasianHispanic-Sri Lankan 72% 1 in 46 1 in 164African-[place] 65% 1 in 65 1 in 186Asian-[place] 49% 1 in 94 1 in 184Other insufficient da ta available Health care providers, please contact your local Search123' gen eti counselor or call [employer] at [employer] ([phone]) for assistance withinterpretation of these results. Mutations/Polymorphisms SEE Normal Mutations/Polymo rphisms [facility] NOTE (applies to Health non-numeric System results) MUTATIONS ANALYZED:G85E (c.254G>A) S549N (c.1646G>A)394delTT (c.262delTT) G551D (c.1652G>A)R117H (c.350G>A) R553X (c.1657C>T)621+1 G>T (c.489+1G>T) R560T (c.1679G>C)711+1 G>T (c.579+1G>T) 1898+1 G>A (c.1766+1G>A)1078delT (c.948delT) 2183AA>G (c.2051delAAinsG)R334W (c.10 00C>T) 2184delA (c.2052delA)R347H (c.1040G>A) 2789+5 G>A (c.2657+5G> A)R347P (c.1040G>C) 3120+1 G>A (c.2988+1G>A)A455E (c.1364C>A) R11 62X (c.3484C>T)A235isq (c.1519delATC) 3659delC (c.3528delC)V912xfd (c.1521delC TT) 3849+10kb C>T (c.3717+80825P>T)V520F (c.1558G>T) 3876delA (c.3744de lA)1717-1 G>A (c.1585-1G>A) 3905insT (c.3773insT)G542X (c.1624G>T) F7721C (c.3846G>A)S549R (c.1645A>C or c.1647T>G) I0260F (c.3909C>G)This assay detects thirty-two mutations, including thetwenty-three core mutations recommend ed by the AmericanCollege of Medical Genetics (ACMG) and the [place] Congressof Obste tricians and Gynecologists (ACOG) forpopulation-based CF carrier screening . In addition to theACMG/ACOG panel, this assay detects nine additionalmutations. While these mutations are rare in the [place]population, the scientific and medical literature indicatesthat these mutations are not benign polymorphisms. Thestatus of the intron 9 (formerly intron 8) polyT tract isreported only when the R117H mut ation is detected. Reviewer SEE NOTE Normal (applies to [facility] non-numeric results) Laboratory results and submitted clinica l informationreviewed by Bryon Velasquez MD, MHA, FACMG, CGMBS.For additi onal information, please refer [email or web address] faq/[email or web address](This link is being provided for informational/educationalpurposes only.) This test was developed and its analytical performancecharacteristics have been det ermined by [facility]. It has not beenclea red or approved by FDA. This assay has been validatedpursuant to the CLIA regulation s and is used for clinicalpurposes.THIS TEST WAS PERFORMED AT:[facility]/[place] [id number] [facility] [address]KMBNXHAKAN LAM MD,PHD,ARepo rted Date and Time - 01/13/2020 16:33 ID Date Data Source [id number] 02/25/2020 02:04:14 AM EDT [facility] alth System Name Value Range Interpretation Description Data Sup porting Code Source(s) Document(s ) HepatitisBSurfac NON-REACTIV Normal (applies Hepatitis B [facility] eAntigen. E THIS TEST to non-numeric Surface [facility] WAS results) Antigen. System PERFORMED AT:[facility] [address] [address] JULIET SHIPLEY MD Hepatitis B DNR Normal (applies CONFIRMATION [facility] virus surface Ag to non-numeric Health [Presence] in results) System Serum or Plasma by Neutralization test Reported Date and Time - 01/13/2020 16:3 3 ID Date Data Source [id number] 02/25/2020 02:04:14 AM EDT [facility] alth System Name Value Range Interpretation Description Data Sup porting Code Source(s) Document(s ) Sodium 137 Normal (applies Sodium, Serum [facility] [Moles/volume] in mmol/L to non-numeric Health Serum or Plasma results) System Potassium 4.6 Normal (applies Potassium, [facility] [Mass/volume] in mmol/L to non-numeric Serum Health Serum or Plasma results) System Chloride 105 Normal (applies Chloride, [facility] [Moles/volume] in mmol/L to non-numeric Serum Health Serum or Plasma results) System TotalProtein 6.3 Normal (applies Total Protein [facility] mg/dl to non-numeric Health results) System Carbon dioxide, 25.0 Normal (applies CO2, Serum [facility] total mmol/L to non-numeric Health [Moles/volume] in results) System Serum or Plasma Glucose 75 Normal (applies Glucose, [facility] [Mass/volume] in mg/dL to non-numeric Serum Health Serum or Plasma results) System Urea nitrogen 8 mg/dl Normal (applies Blood Urea [facility] [Mass/volume] in to non-numeric Nitrogen, Health Serum or Plasma results) Serum System Bilirubin.total 1.0 Normal (applies Bilirubin, [facility] [Mass/volume] in mg/dl to non-numeric Serum Total Health Serum or Plasma results) System Creatinine 0.70 Normal (applies Creatinine, [facility] [Mass/volume] in mg/dl to non-numeric Serum Health Serum or Plasma results) System Alkaline 40 Normal (applies Alkaline [facility] phosphatase {IU/L} to non-numeric Phosphatase, Health isoenzymes results) Serum System [Enzymatic activity/volume] in Serum or Plasma by Heat stability Aspartate 12 Normal (applies Aspartate [facility] aminotransferase {IU/L} to non-numeric Transaminase, [facility] [Enzymatic results) Serum System activity/volume] in Serum or Plasma by With P-5'-P DirectBilirubin 0.6 Above high Direct [facility] mg/dl normal Bilirubin [facility] I.Phosphorus 4.1 Normal (applies I. Phosphorus [facility] mg/dl to non-numeric [facility] results) System Albumin 4.1 Normal (applies Albumin, [facility] [Mass/volume] in {gm/dl} to non-numeric Serum [facility] Serum or Plasma results) System Alanine 9 Normal (applies Alanine [facility] aminotransferase {IU/L} to non-numeric Aminotransfer [facility] [Enzymatic results) ase, Serum System activity/volume] in Serum or Plasma A/GRatio 1.86 Normal (applies A/G Ratio [facility] to non-numeric Health results) System Calcium 9.0 Normal (applies Calcium, [facility] [Mass/volume] in mg/dl to non-numeric Total Serum [facility] Serum or Plasma results) System Anion gap in Serum 7.00 Below low normal Anion Gap [facility] or Plasma mmol/L [facility] Urate 4.3 Normal (applies Uric Acid, [facility] [Mass/volume] in mg/dl to non-numeric Serum [facility] Serum or Plasma results) System Glomerular > 90 Normal (applies GFR [facility] filtration to non-numeric Health rate/1.73 sq results) System M.predicted [Volume Rate/Area] in Serum or Plasma by Creatinine-based formula (CKD-EPI) eGFR will provide clinicians with a more accurate indicator of renal function then the serum creatinine. The eGFR is automa tically calculated from an empiric formula (endorsed by the National [employer] ion) which incorporates age, sex, and race.Clinicians may notice surprisingly low GFR's with serum creatinine valueswithin normal range- particularly in elderly wo men (with low muscle mass).In the hospital setting, the eGFR should add an element of safety in drug dosing, in assessing the risk of IV contrast administration, and in assessing vascular risk.The NKF staging system is as follows:Normal: eGFR >90 with no kidney markersStage 1: eGFR >90 with kidney markers*Stage 2: eGFR 60- 89Stage 3: eGFR 30-59Stage 4: eGFR 15-29Stage 5: eGFR <15 (usually requir ing dialysis)*Markers include: Proteinuria, Hematuria, abnormal imaging-studies, or other blood or urine test abnormalities ID Date Data Source [id number] 02/25/2020 02:04:14 AM EDT [facility] System Name Value Range Interpretation Description Data Sup porting Code Source(s) Document(s ) NIL 0.02 {IU/mL} Normal ([facility] results) Quantife NEGATIVE Normal (applies to Quantiferon-TB [facility]-TBGo non-numeric [facility]. [facility] ld. results) Negative test result. M. tuberculosis co mplex infection unlikely. TB1-NIL. 0.00 {IU/mL} Normal (applies to TB1-NIL. [facility] non-numeric results) System Mitogen-NIL 7.01 {IU/mL} Normal (applies to Mitogen-NIL [facility] non-numeric results) System TB2-NIL. 0.00 {IU/mL} Normal (applies to TB2-NIL. [facility] non-numeric results) System The Nil tube value reflects the backgrou nd interferongamma immune response of the patient's blood sample.This value has be en subtracted from the patient'sdisplayed TB and Mitogen results.Lower than expected results with the Mitogen tubeprevent false-negative Quantiferon readings byde tecting a patient with a potential immunesuppressive condition and/or subop timal pre-analyticalspecimen handling.The TB1 Antigen tube is coated with theM. tuberc ulosis-specific antigens designed to elicitresponses from TB antigen primed C D4+ helperT-lymphocytes.The TB2 Antigen tube is coated with theM. tuberculosis-specif ic antigens designed to elicitresponses from TB antigen primed CD4+ helper and CD8+cy totoxic T-lymphocytes.For additional information, please refer [email or web address].[employer]_.[employer]/faq/SLM170(This link is being provided for informational /educational purposes only.)THIS TEST WAS PERFORMED AT:[facility] [id number] QUINTEN,MDReported Date and Time - 01/13/2020 16:33 ID Date Data Source [id number] 02/25/2020 02:04:14 AM EDT [facility] System Name Value Range Interpretation Description Data Sup porting Code Source(s) Document(s ) Deprecated Micro Result Normal (applies Aerobic [facility] Bacteria Final Culture to non-numeric Culture, Health identified Reading results) Urine System in Urine by Note::"MULTIPL Aerobe E BACTERIAL culture MORPHOTYPES PRESENT, POSSIBLE CONTAMINATION, SUGGEST RECOLLECTION IF CLINICALLY INDICATED". ID Date Data Source [id number] 01/11/2020 09:06:00 AM EDT [facility] Obstetrical sonogram for datesHistory: D atesFindings: Sonographic evaluation was performed of bothlongitudinal and transv erse planes.There is a single intrauterine gestation.[place]-rump lengthcorresponds t o a gestational age of 8 weeks 4days.KIRSTY is 08/18/2020. heart rate was 160beats/ min.This size is consistent with dates.The right ovary 2.8 x 1.9 x 2.4 cm.The left ovary 3.0 x 2.1x 2.5 cm.IMPRESSION: Single intrauterine gestation with a gestationa l ageof 8 weeks 4days.Electronically Signed:Michael Urbina, at 13:4 7 EDTTel , [employer] , [phone] Name Value Range Interpretation Code Description Data Aleisha rce(s) Supporting Document(s ) Procedure Patient Treatment Plan of Care Planned Activity Planned Date Details Description Data Source (s) doxylamine succinate 25 MG 02/19/2020 [facility] Oral Tablet 01:39:21 PM EDT System Vitamin B6 25 MG Oral 02/19/2020 [facility] Tablet 01:38:58 PM EDT System Metoclopramide 5 MG Oral 01/08/2020 [facility] Tablet [Reglan] 10:50:47 AM EDT System
[2020-03-23] MEDS ORDERED: ACETAMINOPHEN 500 MG TABLET (FP) PO ONE (17:01)
--- NOTE | 2020-03-23 17:06 | PDOC ---
History of Present Illness - General Chief Complaint: Vaginal Sxs Stated Complaint: VAGINAL DISCHARGE/19WKS Time Seen by Provider: 03/23/20 16:35 History Source: Patient Exam Limitations: No Limitations - History of Present Illness Initial Comments: 03/23/20 17:03 20-year-old miscarriage currently 19 weeks gestation, LMP November 13, 2019 presents complaining of clear vaginal discharge and pelvic cramping since yesterday. Denies vaginal bleeding, trauma, fever, chills, urinary complaints, back pain, chest pain, shortness of breath or any other symptoms. Last seen at this ED March 07 at that time ultrasound showed intrauterine , 16 weeks gestation with heart rate 148. She has an OB appointment scheduled for April 04, 2020. ROS: as above PE: GENERAL: well-appearing, NAD HEAD: NCAT EYES: Pupils equal, round and reactive to light, sclera anicteric, conjunctiva clear ENT: pharynx: no erythema, no exudate, uvula midline NECK: supple CHEST: nontender RESP: clear, no w/r/r CARDIO: rrr, no m/g/r ABD: +BS, soft, nontender, non distended pelvic: os closed, no cmt, no adnexal ttp, no blood in vault, no vaginal discharge noted BACK: no midline spinal ttp, no CVAT EXTREMITIES: Normal range of motion, no edema NEUROLOGICAL: Normal speech, normal gait SKIN: Warm, Dry 03/23/20 19:33 Is this a multiple visit Asthma Patient?: No Past History - Medical History Allergies/Adverse Reactions: Allergies Allergy/AdvReac Type Severity Reaction Status Date / Time No Known Allergies Allergy Verified 03/23/20 16:23 Home Medications: Ambulatory Orders Asedtahl08/Iron/Folic Acid/Dha [Prena1 Samanta Softgel] 1 each PO DAILY 02/01/20 Pyridoxine HCl (B-6) [Vitamin B6] 100 mg PO DAILY 03/23/20 COPD: No - Reproductive History Is Patient Now?: Yes (#): 2 Para: 0 Cervical CA: No Dysfunctional Uterine Bleeding: No Ectopic : No Endometrial CA: No Polycystic Ovaries: No Therapeutic (s) & number: No Tubal Ligation: No Spontaneous : 0 - Immunization History Immunization Up to Date: Yes - Psycho-Social/Smoking History Smoking History: Never smoked - Substance Abuse Hx (Audit-C & DAST Scrn) How often the patient has a drink containing alcohol: Never Score: In Men: 4 or > Positive; In Women: 3 or > Positive: 0 Screen Result (Pos requires Nsg. Audit-10AR): Negative In the last yr the pt used illegal drug/Rx for NonMed reason: No Score: Yes response is considered Positive: 0 Screen Result (Positive result requires Nsg. DAST-10): Negative *Physical Exam - Vital Signs Last Vital Signs Temp Pulse Resp BP Pulse Ox 97.8 F 82 18 108/61 100 03/23/20 16:24 03/23/20 16:24 03/23/20 16:24 03/23/20 16:24 03/23/20 16:24 ED Treatment Course - LABORATORY CBC & Chemistry Diagram: 03/23/20 17:20 03/23/20 17:20 - RADIOLOGY Radiology Studies Ordered: Category Date Time Status US(SINGLE) [US] Stat Ultrasound 03/23/20 16:59 Ordered Medical Decision Making - Medical Decision Making 03/23/20 17:05 20-year-old miscarriage currently 19 weeks gestation, LMP November 13, 2019 presents complaining of clear vaginal discharge and pelvic cramping since yeste rday. Denies vaginal bleeding, trauma, fever, chills, urinary complaints, back pain, chest pain, shortness of breath or any other symptoms. Last seen at this ED March 07 at that time ultrasound showed intrauterine , 16 weeks gestation with heart rate 148. She has an OB appointment scheduled for April 04, 2020. labs IV po acetaminophen ultrasound re assess 03/23/20 19:34 Reviewed labs and UA with patient Ultrasound: Single live intrauterine at 18 weeks and 4 days, heart rate 132 bpm fetus is breech in position. The amniotic fluid appears normal, os is closed (official reading) Patient stable for discharge Discharge - Discharge Information Problems reviewed: Yes Clinical Impression/Diagnosis: Pelvic pain Condition: Stable Disposition: HOME - Admission No - Follow up/Referral Referrals: Felix Gamino MD [Primary Care Provider] - - Patient Discharge Instructions Additional Instructions: Keep your appointment with your OB doctor scheduled for April 04, 2020 If you develop vaginal bleeding, fever, chills, worsening pain or any concerning symptom return to the ED Take acetaminophen 975 mg every 6 hours as needed for cramping - Post Discharge Activity
[2020-03-23] MEDS ORDERED: ACETAMINOPHEN 500 MG TABLET (FP) ONE (17:19)
[2020-03-23 17:24] LABS: BASO % 0.5 % (0-2.0); EOS % 0.4 % (0-4.5); HEMATOCRIT 34.7 % (32.4-45.2); HEMOGLOBIN 12.1 GM/dL (10.7-15.3); LYMPH % 19.3 % (8-40); MCH 32.5 pg (25.7-33.7); MCHC 34.8 g/dl (32.0-36.0); MEAN CELL VOLUME 93.2 fl (80-96); MONO % 6.5 % (3.8-10.2); NEUT % 73.3 % (42.8-82.8); PLATELET COUNT 187 K/MM3 (134-434); RBC 3.72 M/mm3 (3.60-5.2); RDW 13.1 % (11.6-15.6); WHITE BLOOD COUNT 8.3 K/mm3 (4.0-10.0)
[2020-03-23 17:34] LABS: INR 0.96 (0.83-1.09); PROTHROMBIN TIME (PATIENT) 11.3 SEC (9.7-13.0)
[2020-03-23 17:37] LABS: PH,URINE 6.5 (5.0-8.0); URINE APPEARANCE CLEAR; URINE BILIRUBIN NEGATIVE (NEGATIVE); URINE COLOR YELLOW; URINE GLUCOSE (UA) NEGATIVE (NEGATIVE); URINE KETONE NEGATIVE (NEGATIVE); URINE LEUK ESTERASE NEGATIVE (NEGATIVE); URINE NITRITE NEGATIVE (NEGATIVE); URINE PROTEIN NEGATIVE (NEGATIVE); URINE UROBILINOGEN 0.2 mg/dL (0.2-1.0)
[2020-03-23 17:37] LABS: ACTIVATED PTT 25.5 SECONDS (25.2-36.5)
[2020-03-23 17:57] LABS: ALBUMIN 2.9 g/dl (3.4-5.0); BILIRUBIN,TOTAL 0.6 mg/dL (0.2-1); BLOOD UREA NITROGEN 5.7 mg/dL (7-18); CALCIUM 8.7 mg/dL (8.5-10.1); CREATININE 0.5 mg/dL (0.55-1.3); POTASSIUM 4.4 mmol/L (3.5-5.1); TOT PROT 6.1 g/dl (6.4-8.2)
== END 2020-03-23 19:46 | disposition home or self-care (01) ==
LOC: JER 16:19
DX: R10.2 Pelvic and perineal pain (principal)
CPT/HCPCS: 36415; 76801-TC; 80053; 81003; 84702; 85025; 85610; 85730; 86850; 86900; 86901; 99284-25

== ENCOUNTER 2020-07-03 05:27 | Emergency (ER) | payer OTHER ==
[2020-07-03] MEDS ORDERED: METOCLOPRAMIDE HCL INJECTION 10 MG/2 ML VIAL IVPB ONE (05:53)
[2020-07-03] MEDS ORDERED: SODIUM CHLORIDE 0.9% 500 ML INFUS.BAG IV ONE (05:53)
[2020-07-03 05:59] VITALS: BMI 30.9
[2020-07-03] MEDS ORDERED: METOCLOPRAMIDE HCL INJECTION 10 MG/2 ML VIAL ONE (05:59)
[2020-07-03 06:18] LABS: BASO % 0.4 % (0-2.0); EOS % 0.2 % (0-4.5); HEMATOCRIT 31.4 % (32.4-45.2); HEMOGLOBIN 10.7 GM/dL (10.7-15.3); LYMPH % 5.6 % (8-40); MCH 30.4 pg (25.7-33.7); MCHC 34.2 g/dl (32.0-36.0); MEAN CELL VOLUME 88.8 fl (80-96); MEAN PLT VOLUME 9.7 fl (7.5-11.1); MONO % 10.7 % (3.8-10.2); NEUT % 83.1 % (42.8-82.8); PLATELET COUNT 161 K/MM3 (134-434); RBC 3.54 M/mm3 (3.60-5.2); RDW 12.3 % (11.6-15.6)
[2020-07-03 06:42] LABS: ALBUMIN 2.8 g/dl (3.4-5.0); CALCIUM 8.5 mg/dL (8.5-10.1)
[2020-07-03 06:43] LABS: BLOOD UREA NITROGEN 5.8 mg/dL (7-18); MAGNESIUM 1.6 mg/dL (1.8-2.4)
[2020-07-03 06:46] LABS: CREATININE 0.5 mg/dL (0.55-1.3); PHOSPHOROUS 3.2 mg/dL (2.5-4.9)
[2020-07-03 06:47] LABS: BILIRUBIN,TOTAL 0.9 mg/dL (0.2-1); TOT PROT 6.2 g/dl (6.4-8.2)
[2020-07-03 06:52] LABS: PH,URINE 8.5 (5.0-8.0); URINE APPEARANCE CLEAR; URINE BILIRUBIN NEGATIVE (NEGATIVE); URINE COLOR YELLOW; URINE GLUCOSE (UA) NEGATIVE (NEGATIVE); URINE KETONE NEGATIVE (NEGATIVE); URINE LEUK ESTERASE NEGATIVE (NEGATIVE); URINE NITRITE NEGATIVE (NEGATIVE); URINE PROTEIN TRACE (NEGATIVE)
[2020-07-03] MEDS ORDERED: ACETAMINOPHEN 1000 MG/100 ML BAG IVPB ONE (08:16)
[2020-07-03] MEDS ORDERED: LACTATED RINGERS SOLUTION 1,000 ML/1,000 ML INFUS.BAG IV STA ×2 (08:17→09:48)
[2020-07-03] MEDS ORDERED: ACETAMINOPHEN INJECTION 100 ML IVPB ONE (08:35)
[2020-07-03] MEDS ORDERED: CEFTRIAXONE 2,000 MG in DEXTROSE 5%-WATER - 50 ML IVPB ONE (09:37)
[2020-07-03] MEDS ORDERED: CEFTRIAXONE 2 GM/100 ML BAG IVPB ONE (09:44)
[2020-07-03] MEDS ORDERED: VANCOMYCIN 1 GM in D5W (PRE-DOCKED) 1,000 MG/250 ML IVPB ONE (09:59)
[2020-07-03] MEDS ORDERED: VANCOMYCIN 1 GRAM (PRE-DOCKED) 1,000 MG/250 ML BAG IVPB ONE (10:01)
[2020-07-03 10:37] LABS: INR 1.08 (0.83-1.09)
[2020-07-03 10:41] LABS: LDH 128 U/L (84-246)
[2020-07-03] MEDS ORDERED: LACTATED RINGERS SOLUTION 1,000 ML/1,000 ML INFUS.BAG IV SCH (11:30)
[2020-07-03 12:42] VITALS: BP 121/56; PULSE 114; TEMP 98.9
== END 2020-07-03 12:40 | disposition short-term general hospital (02) ==
LOC: JER 05:27
PROC: 3E0333Z Introduction of Anti-inflammatory into Peripheral Vein, Percutaneous Approach (ICD-10-PCS; principal; 2020-07-03)
PROC: 3E03329 Introduction of Other Anti-infective into Peripheral Vein, Percutaneous Approach (ICD-10-PCS; 2020-07-03)
PROC: 3E033GC Introduction of Other Therapeutic Substance into Peripheral Vein, Percutaneous Approach (ICD-10-PCS; 2020-07-03)
PROC: 3E03329 Introduction of Other Anti-infective into Peripheral Vein, Percutaneous Approach (ICD-10-PCS; 2020-07-03)
DX: M79.10 Myalgia, unspecified site (principal)
CPT/HCPCS: 36415; 71045-TC-FY; 76815-TC; 80053; 81003; 82550; 82728; 83605; 83615; 83690; 83735; 84100; 84484; 85025; 85379; 85610; 85651; 85730; 86140; 87040; 87086; 87804; 93005; 93010; 93970-TC; 99285-25; C9803; J0131; U0003

== ENCOUNTER 2020-08-12 02:25 | Inpatient (IN) | payer OTHER ==
[2020-08-12] MEDS ORDERED: ELECTROLYTE-148 SOLN 500 ML IV ONE (03:00)
[2020-08-12 03:35] VITALS: BMI 34.7
[2020-08-12] MEDS ORDERED: ELECTROLYTE-148 SOLN 1,000 ML IV SCH (04:00)
[2020-08-12 04:04] LABS: MONO % 7.6 % (3.8-10.2)
[2020-08-12 04:08] LABS: BASO % 0.3 % (0-2.0); EOS % 0.3 % (0-4.5); HEMATOCRIT 31.9 % (32.4-45.2); HEMOGLOBIN 10.7 GM/dL (10.7-15.3); LYMPH % 19.2 % (8-40); MCH 29.3 pg (25.7-33.7); MCHC 33.4 g/dl (32.0-36.0); MEAN CELL VOLUME 87.7 fl (80-96); MEAN PLT VOLUME 11.4 fl (7.5-11.1); NEUT % 72.6 % (42.8-82.8); PLATELET COUNT 157 K/MM3 (134-434); RBC 3.64 M/mm3 (3.60-5.2); RDW 14.6 % (11.6-15.6); WHITE BLOOD COUNT 9.9 K/mm3 (4.0-10.0)
[2020-08-12 04:19] LABS: POTASSIUM 4.3 mmol/L (3.5-5.1)
[2020-08-12 04:20] LABS: INR 0.9 (0.83-1.09); PROTHROMBIN TIME (PATIENT) 10.9 SEC (9.7-13.0)
[2020-08-12 04:21] LABS: BLOOD UREA NITROGEN 7.2 mg/dL (7-18); CALCIUM 8.9 mg/dL (8.5-10.1)
[2020-08-12 04:22] LABS: ACTIVATED PTT 17.5 SECONDS (25.2-36.5)
[2020-08-12 04:25] LABS: CREATININE 0.4 mg/dL (0.55-1.3)
[2020-08-12] MEDS ORDERED: BUTORPHANOL TARTRATE 2 MG/ML VIAL ONE (06:49)
[2020-08-12] MEDS ORDERED: PROMETHAZINE HCL 25 MG/1 ML VIAL ONE (06:50)
[2020-08-12] MEDS ORDERED: BUTORPHANOL TARTRATE 1 MG/ML VIAL IVPB PRN (06:57)
[2020-08-12] MEDS ORDERED: PCA PUMP NR ONE (08:52)
[2020-08-12] MEDS ORDERED: FENTANYL/BUPIVACAINE/NS/PF - PCEA - 50 ML DISP.SYRIN EP ONE (08:52)
[2020-08-12] MEDS ORDERED: BUPIVACAINE HCL/PF 0.25% (2.5MG/ML) 10 ML VIAL ONE (09:16)
[2020-08-12] MEDS: ELECTROLYTE-148 SOLN 1,000 ML IV SCH (09:30)
[2020-08-12] MEDS ORDERED: BENZOCAINE 28 GM HEMORRHOIDAL OINTMENT RC PRN (09:37)
[2020-08-12] MEDS ORDERED: METHYLERGONOVINE MALEATE 0.2 MG/1 ML AMP IM PRN (09:37)
[2020-08-12] MEDS ORDERED: BISACODYL 10 MG SUPP.RECT PR PRN (09:37)
[2020-08-12] MEDS ORDERED: BENZOCAINE 20% 57 GM BOTTLE TP PRN (09:37)
[2020-08-12] MEDS ORDERED: WITCH HAZEL 50% (TUCKS) 40 PAD/JAR PAD TP PRN (09:37)
[2020-08-12] MEDS ORDERED: NALOXONE HCL 0.4 MG/ML VIAL IVPUSH PRN (09:41)
[2020-08-12] MEDS ORDERED: FENTANYL/BUPIVACAINE/NS/PF - PCEA - 50 ML DISP.SYRIN EP SCH ×2 (09:45→10:01)
[2020-08-12] MEDS ORDERED: LIDOCAINE HCL 1% PRESERVATIVE FREE - 30ML VIAL ONE (10:15)
[2020-08-12] MEDS ORDERED: OXYTOCIN 20 UNITS in 0.9% NS 20 UNIT/1,000 ML INFUS.BAG IV ONE ×2 (10:15→13:48)
[2020-08-12 14:06] LABS: CORD HCO3 20.7 mmHg (20-29); CORD pH 7.281 (7.14-7.44)
[2020-08-12 14:08] LABS: CORD HCO3 22.1 mmHg (20-29); CORD PCO2 48.3 mmHg (30-78); CORD pH 7.279 (7.14-7.44)
[2020-08-12] MEDS: ACETAMINOPHEN 325 MG TABLET (FP) PO PRN (19:27)
[2020-08-12] MEDS: IBUPROFEN 600 MG TABLET (FP) PO PRN (19:27)
[2020-08-12] MEDS ORDERED: SENNOSIDES/DOCUSATE COMBO (SENNA PLUS) TABLET (UD) PO SCH (22:00)
[2020-08-13] MEDS: ACETAMINOPHEN 325 MG TABLET (FP) PO PRN ×2 (05:07→16:46)
[2020-08-13] MEDS: IBUPROFEN 600 MG TABLET (FP) PO PRN ×2 (05:07→16:45)
[2020-08-13] MEDS: ELECTROLYTE-148 SOLN 1,000 ML IV SCH (07:19)
[2020-08-13 08:40] LABS: BASO % 0.9 % (0-2.0); EOS % 0.8 % (0-4.5); HEMATOCRIT 26.2 % (32.4-45.2); HEMOGLOBIN 8.6 GM/dL (10.7-15.3); LYMPH % 23.8 % (8-40); MCH 29.2 pg (25.7-33.7); MCHC 32.8 g/dl (32.0-36.0); MEAN CELL VOLUME 89.1 fl (80-96); MEAN PLT VOLUME 10.6 fl (7.5-11.1); MONO % 7.9 % (3.8-10.2); NEUT % 66.6 % (42.8-82.8); PLATELET COUNT 133 K/MM3 (134-434); RBC 2.94 M/mm3 (3.60-5.2); WHITE BLOOD COUNT 10.6 K/mm3 (4.0-10.0)
[2020-08-14 09:26] VITALS: BP 128/70; PULSE 79; TEMP 97.9
== END 2020-08-14 18:10 | disposition home or self-care (01) | DRG 560 ==
LOC: JDEL 02:25 → JLDR 02:55 → J3W 13:57
PROVIDERS: ADMIT Obstetrics & Gynecology; ATTEND Obstetrics & Gynecology
PROC: 10E0XZZ Delivery of Products of Conception, External Approach (ICD-10-PCS; principal; 2020-08-12)
PROC: 0W8NXZZ Division of Female Perineum, External Approach (ICD-10-PCS; 2020-08-12)
DX: O70.0 First degree perineal laceration during delivery (principal); Z3A.39 39 weeks gestation of pregnancy; Z37.0 Single live birth
CPT/HCPCS: 36415; 36600; 59409; 80048; 82803; 85025; 85610; 85730; 86780; 86850; 86900; 86901; C9803; U0003

== ENCOUNTER 2020-10-18 12:52 | Emergency (ER) | payer OTHER ==
[2020-10-18 12:59] VITALS: BP 109/67; PULSE 69; TEMP 98.1; BMI 31.8
[2020-10-18] MEDS ORDERED: ACETAMINOPHEN 325 MG TABLET (FP) PO ONE (13:09)
[2020-10-18 13:33] LABS: BASO % 0.7 % (0-2.0); EOS % 0.5 % (0-4.5); HEMATOCRIT 38.4 % (32.4-45.2); HEMOGLOBIN 12.8 GM/dL (10.7-15.3); LYMPH % 36.6 % (8-40); MCH 28.9 pg (25.7-33.7); MCHC 33.3 g/dl (32.0-36.0); MEAN CELL VOLUME 86.8 fl (80-96); MONO % 6.5 % (3.8-10.2); NEUT % 55.7 % (42.8-82.8); PLATELET COUNT 261 K/MM3 (134-434); RBC 4.42 M/mm3 (3.60-5.2); RDW 13.3 % (11.6-15.6); WHITE BLOOD COUNT 6.2 K/mm3 (4.0-10.0)
[2020-10-18 13:55] LABS: CHLORIDE 107 mmol/L (98-107); SODIUM 138 mmol/L (136-145)
[2020-10-18 13:56] LABS: CALCIUM 8.6 mg/dL (8.5-10.1)
[2020-10-18 13:57] LABS: ALBUMIN 3.8 g/dl (3.4-5.0); ANION GAP 5 MMOL/L (8-16); BLOOD UREA NITROGEN 12.9 mg/dL (7-18); CO2 25 mmol/L (21-32); GLUCOSE,RANDOM 88 mg/dL (74-106)
[2020-10-18 14:00] LABS: CREATININE 0.7 mg/dL (0.55-1.3); SGOT/AST 17 U/L (15-37); SGPT/ALT 27 U/L (13-61)
[2020-10-18 14:02] LABS: BILIRUBIN,TOTAL 0.8 mg/dL (0.2-1); TOT PROT 7.2 g/dl (6.4-8.2)
[2020-10-18 14:03] LABS: ALK PHOS 82 U/L (45-117)
== END 2020-10-18 15:11 | disposition home or self-care (01) ==
LOC: JER 12:52 → JERFT 12:52
DX: M94.0 Chondrocostal junction syndrome [Tietze] (principal)
CPT/HCPCS: 36415; 71046-TC-FY; 80053; 82550; 84484; 84703; 85025; 85379; 93005; 93010; 99285-25

== ENCOUNTER 2024-04-20 06:19 | Emergency (ER) | payer OTHER ==
[2024-04-20] MEDS ORDERED: KETOROLAC TROMETHAMINE 60 MG/2 ML VIAL ONE (06:34)
[2024-04-20] MEDS ORDERED: CYCLOBENZAPRINE HCL 5 MG TABLET ONE (06:34)
[2024-04-20] MEDS: KETOROLAC TROMETHAMINE 60 MG/2 ML VIAL IM ONE (06:41)
[2024-04-20] MEDS: CYCLOBENZAPRINE HCL 10 MG TABLET (FP) PO ONE (06:41)
[2024-04-20 06:49] VITALS: BP 100/77; PULSE 84; RESP 16; TEMP 98; BMI 31.6
== END 2024-04-20 06:51 | disposition home or self-care (01) ==
LOC: FER 06:19
PROC: 3E0233Z Introduction of Anti-inflammatory into Muscle, Percutaneous Approach (ICD-10-PCS; principal; 2024-04-20)
DX: S16.1XXA Strain of muscle, fascia and tendon at neck level, initial encounter (principal); M54.9 Dorsalgia, unspecified; V89.2XXA Person injured in unspecified motor-vehicle accident, traffic, initial encounter
CPT/HCPCS: 99284-25

== ENCOUNTER 2024-06-30 11:02 | Emergency (ER) | payer OTHER ==
[2024-06-30 11:34] VITALS: BP 101/80; PULSE 67; RESP 20; TEMP 98.8; BMI 28.9
[2024-06-30] MEDS: IBUPROFEN 400 MG TABLET (FP) PO ONE (13:20)
[2024-06-30] MEDS: ACETAMINOPHEN 500 MG TABLET (FP) PO ONE (13:20)
[2024-06-30] MEDS: LIDOCAINE 5% TOPICAL PATCH TP ONE (13:21)
[2024-06-30] MEDS ORDERED: LIDOCAINE 5% TOPICAL PATCH ONE (13:22)
[2024-06-30] MEDS ORDERED: ACETAMINOPHEN 500 MG TABLET (FP) ONE (13:22)
[2024-06-30] MEDS ORDERED: IBUPROFEN 400 MG TABLET (FP) PO ONE (13:22)
[2024-06-30] MEDS ORDERED: LIDOCAINE PATCH REMOVAL MC ONE (22:00)
== END 2024-06-30 13:33 | disposition home or self-care (01) ==
LOC: FER 11:02
DX: M54.50 Low back pain, unspecified (principal); R30.0 Dysuria; R39.15 Urgency of urination
CPT/HCPCS: 36415; 81003; 84703; 87086; 87491; 87591; 99283-25

== ENCOUNTER 2024-09-01 11:12 | Emergency (ER) | payer OTHER ==
[2024-09-01 11:28] VITALS: BP 127/68; PULSE 81; RESP 20; TEMP 98.2; BMI 27.2
[2024-09-01] MEDS ORDERED: MAG HYDROX/AL HYDROX/SIMETH 30 ML UNIT-DOSE CUP ONE (11:57)
[2024-09-01] MEDS ORDERED: FAMOTIDINE 20 MG/50 ML IVPB 20 MG/50 ML MG IVPB ONE (11:57)
[2024-09-01] MEDS ORDERED: ACETAMINOPHEN INJECTION 100 ML ONE (11:57)
[2024-09-01] MEDS: MAG HYDROX/AL HYDROX/SIMETH 30 ML UNIT-DOSE CUP PO ONE (12:19)
[2024-09-01] MEDS: LACTATED RINGERS SOLUTION 1000 ML INFUS.BAG IV ONE (12:19)
[2024-09-01] MEDS: ACETAMINOPHEN 1000 MG/100 ML BAG IVPB ONE (12:19)
[2024-09-01] MEDS: FAMOTIDINE 20 MG/50 ML IVPB 20 MG/50 ML MG IVPB ONE (12:20)
[2024-09-01 13:11] LABS: ALBUMIN 4.1 g/dl (3.4-5.0); BILIRUBIN,TOTAL 0.9 mg/dl (0.2-1); CALCIUM 8.8 mg/dl (8.5-10.1); CREATININE 0.6 mg/dl (0.6-1.3); TOT PROT 6.1 g/dl (6.4-8.2)
[2024-09-01 13:26] LABS: HEMATOCRIT 37.3 % (32.4-45.2); HEMOGLOBIN 12.8 G/dL (10.7-15.3); MCH 30.8 pg (25.7-33.7); MCHC 34.2 g/dl (32.0-36.0); PLATELET COUNT 244.3 10^3/uL (134-434); RBC 4.14 10^6/uL (3.60-5.2); RDW 13.4 % (11.6-15.6); WHITE BLOOD COUNT 8.4 10^3/uL (4.0-10.8)
[2024-09-01 13:27] LABS: PLATELET ESTIMATE ADEQUATE
[2024-09-01 13:44] LABS: PROTHROMBIN TIME (PATIENT) 11.4 SEC (9.7-13.0)
[2024-09-01 13:46] LABS: ACTIVATED PTT 30.7 SECONDS (25.2-36.5)
[2024-09-01] MEDS: LIDOCAINE 5% TOPICAL PATCH TP ONE (13:51)
[2024-09-01] MEDS: KETOROLAC TROMETHAMINE 30 MG/1 ML VIAL IVPUSH ONE (13:51)
[2024-09-01] MEDS ORDERED: KETOROLAC TROMETHAMINE 15 MG/ML VIAL ONE (13:52)
[2024-09-01] MEDS ORDERED: LIDOCAINE 5% TOPICAL PATCH ONE (13:53)
[2024-09-01] MEDS ORDERED: LIDOCAINE PATCH REMOVAL MC ONE (22:00)
== END 2024-09-01 14:18 | disposition home or self-care (01) ==
LOC: FER 11:12
PROC: 3E033GC Introduction of Other Therapeutic Substance into Peripheral Vein, Percutaneous Approach (ICD-10-PCS; principal; 2024-09-01)
PROC: 3E033NZ Introduction of Analgesics, Hypnotics, Sedatives into Peripheral Vein, Percutaneous Approach (ICD-10-PCS; 2024-09-01)
PROC: 3E0333Z Introduction of Anti-inflammatory into Peripheral Vein, Percutaneous Approach (ICD-10-PCS; 2024-09-01)
DX: R10.12 Left upper quadrant pain (principal); Z20.822 Contact with and (suspected) exposure to COVID-19
CPT/HCPCS: 0241U-QW; 36415; 74177-TC; 80053; 81003; 81015; 83690; 84703; 85027; 85610; 85730; 86850; 86900; 86901; 87086; 99285-25; J0131; Q9967